=== PATIENT | male | born 1960 | race Caucasian/White ===

== ENCOUNTER 2017-08-16 23:08 | Emergency (ER) | payer OTHER ==
[~2017-08-16] VITALS: Ht 180.3 cm; Wt 120.0 kg
[~2017-08-16 23:08] MED LIST: 1-ME1LIQ PO; ATOR10TA PO; HYDR-2768 PO; LANS30 PO; LISI-363 PO; LORT5TAB PO
[2017-08-16 23:11] VITALS: BP 219/99; PULSE 74; RESP 18; TEMP 97.7; O2SAT 99
[2017-08-16] MEDS ORDERED: LISI-515 PO (23:46)
[2017-08-16] MEDS ORDERED: HYDR-4107 PO (23:46)
[2017-08-16] MEDS ORDERED: HYDR25TA5 PO (23:46)
[2017-08-16] MEDS ORDERED: LANS30CA PO (23:46)
[2017-08-16] MEDS ORDERED: ATOR10TA15 PO (23:46)
--- NOTE | 2017-08-16 23:56 | PD ---
HPI Chief Complaint: Back/ Neck Pain or Injury Time Seen by Provider: 23:53 Travel History International Travel<30 days: No Contact w/Intl Traveler<30days: No Traveled to known affect area: No History of Present Illness HPI 57-year-old male presents to the emergency department complaining of low back pain since non-syncopal slip and fall this morning on the tile. Patient has chronic pain syndrome. Patient denies any new lower extremity numbness tingling weakness, saddle anesthesia, or bladder or bowel dysfunction. Patient states he took his last Percocet prior to coming to the emergency department. Patient continues to have pain. Patient has had multiple imaging studies and does not feel imaging is indicated but cannot sleep so comes to the emergency room for pain management and reports that he has an appointment with his pain management doctor in the a.m. Patient did not hit his head did not have loss of consciousness did not injure his neck or upper back. PFSH Past Medical History Narrative Medical Chronic neck and back pain, psoriasis, dyslipidemia left knee arthroscopic surgery; tobacco use; nursing notes reviewed Cancer: No High Cholesterol: Yes Diabetes: No Endocrine: No Hepatitis: No Hypertension: Yes Immune Disorder: No Psychiatric: No Thyroid Disease: No Tetanus Vaccination: < 5 Years Past Surgical History AICD: No Genitourinary Surgery: Yes (TESTICLE SX AT AGE 8, 10) Joint Replacement: No Oral Surgery: Yes (WISDOM TEETH) Pacemaker: No Other Surgery: Yes (right knee arthroscopic) Social History Alcohol Use: No Tobacco Use: Yes Substance Use: No Allergies-Medications (Allergen,Severity, Reaction): Coded Allergies: cefazolin (Verified Allergy, Severe, Anaphylaxis, 08/16/17) Reported Meds & Prescriptions Reported Meds & Active Scripts Active Reported Lansoprazole 30 Mg Capdr 30 Mg PO DAILY Lisinopril 20 Mg Tab 20 Mg PO DAILY Hydrocodone-Acetaminophen 5-300 Mg Tab 1 Tab PO Q6H PRN Hydrochlorothiazide 25 Mg Tab 25 Mg PO BID Atorvastatin (Atorvastatin Calcium) 10 Mg Tab 10 Mg PO HS Narrative Medication Oxycodone Review of Systems Except as stated in HPI: all other systems reviewed are Neg General / Constitutional: No: Fever, Chills HENT: No: Congestion, Neck Stiffness Cardiovascular: No: Chest Pain or Discomfort Respiratory: No: Shortness of Breath Gastrointestinal: No: Abdominal Pain Genitourinary: No: Pelvic Pain, Flank Pain Musculoskeletal: Positive: Pain, No: Myalgias, Arthralgias, Limited ROM Skin: No Rash Neurologic: No: Weakness, Dizziness, Syncope, Focal Abnormalities, Coordination Problem, Paresthesia, Incontinence, Sensory Disturbance Psychiatric: No: Anxiety Hematologic/Lymphatic: No: Lymph Node Enlargement Physical Exam Narrative GENERAL: Well-developed well-nourished male in no acute distress no respiratory distress; GCS 15 SKIN: Warm and dry. HEAD: Normocephalic. EYES: No scleral icterus. No injection or drainage. NECK: Supple, trachea midline. No JVD or lymphadenopathy. CARDIOVASCULAR: Regular rate and rhythm without murmurs, gallops, or rubs. RESPIRATORY: Breath sounds equal bilaterally. No accessory muscle use. GASTROINTESTINAL: Abdomen soft, non-tender, nondistended. MUSCULOSKELETAL: No cyanosis, or edema. BACK: Nontender without obvious deformity. Negative straight leg raising bilaterally. Sensory exam intact. DTRs 2+ and equal without clonus. Point tenderness to direct palpation along the lower lumbar spine and right SI joint. No CVA tenderness. Data Data Last Documented VS Vital Signs Date Time Temp Pulse Resp B/P (MAP) Pulse Ox O2 Delivery O2 Flow Rate FiO2 08/17/17 00:23 167/87 (113) 08/16/17 23:11 97.7 74 18 99 Orders Orders Ketorolac Inj (Toradol Inj) (08/17/17 00:00) Orphenadrine Inj (Norflex Inj) (08/17/17 00:00) Dexamethasone Inj (Decadron Inj) (08/17/17 00:00) Acetamin-Hydrocod 325-5 Mg ([place] 5-325 (08/17/17 00:30) Ed Discharge Order (08/17/17 00:30) MDM Medical Decision Making Medical Screen Exam Complete: Yes Emergency Medical Condition: Yes Medical Record Reviewed: Yes Differential Diagnosis Low back pain, exacerbation chronic pain syndrome, degenerative disc disease, HNP, lumbar compression fracture Narrative Course Patient with chronic back pain with exacerbation after reported non-syncopal slip and fall greater than 12 hours ago with persistent pain and appointment with his pain management provider in the morning with no new numbness tingling or weakness or neurologic deficit with reproducible tenderness to palpation along the lower lumbar spine was negative straight leg raising on exam and without bladder or bowel dysfunction or saddle anesthesia to suggest no evidence of cauda equina at this time. Patient will be administered a one-time dose of muscle relaxant Norflex 60 mg IM along with Toradol 60 mg IM as well as one-time dose of Decadron 10 mg IM. Patient offered imaging studies of the lumbar spine but patient does not want any imaging performed as he has had multiple x-rays CAT scans and MRIs in the past. Patient given x 1 dose lortab 5/325 Patient is encouraged to follow-up with his pain management provider in the a.m. as scheduled and is otherwise stable for outpatient management. Diagnosis Primary Impression: Acute exacerbation of chronic low back pain Referrals: Pain Management 1 day Patient Instructions: General Instructions Additional Instructions: Due to acuity of injury recommend ice intermittently for first 12-24 hours then moist heat Continue chronic pain medication as chronically prescribed by her pain management provider Keep appointment with her pain management doctor as scheduled Return to the emergency department for any concerns or change in condition Increase fluid hydration May take as tolerated [id number] ibuprofen/Advil/Motrin 800 mg as often as every 8 hours for pain associated with inflammation avoid high-dose ibuprofen for greater than 2-3 days Follow-up with your primary care provider as needed Med/Other Pt SpecificInfo: No Change to Meds Disposition: 01 DISCHARGE HOME Condition: Stable Beba Bonilla MD Aug 16, 2017 23:56
[2017-08-17] MEDS ORDERED: ORPHENADRINE INJ 60 MG/2 ML AMP IM ONE
[2017-08-17] MEDS ORDERED: DEXAMETHASONE SOD PHOS 20 MG/5 ML VIAL IM ONE
[2017-08-17] MEDS ORDERED: KETOROLAC TROMETHAMINE 60 MG/2 ML (IM) VIAL IM ONE
[2017-08-17 00:23] VITALS: BP 167/87
[2017-08-17] MEDS ORDERED: ACETAMINOPHEN/HYDROcodone 325 MG/5 MG TAB PO ONE (00:30)
[2017-08-17 00:47] VITALS: RESP 18
== END 2017-08-17 00:47 | disposition home or self-care (01) ==
LOC: NEPC 23:08
DX: M54.5 Low back pain (principal); G89.29 Other chronic pain; E78.00 Pure hypercholesterolemia, unspecified; I10 Essential (primary) hypertension; Z72.0 Tobacco use; Z79.899 Other long term (current) drug therapy; Z88.8 Allergy status to other drugs, medicaments and biological substances
CPT/HCPCS: 96372; 99284; J1100; J1885; J2360